=== PATIENT | male | born 1995 | race Caucasian/White ===

== ENCOUNTER → 2016-07-19 | Outpatient (REF) | payer SELFPAY ==
[2016-07-19 10:50] LABS: % NORMAL FORMS 8 % (>=4); IMMOTILITY 40 %; NON PROGRESSIVE MOTILITY (c) 20 %; SPERM# 27.2 M/Ejac (33-46); TOTAL FUNCTIONAL 2.1 M/Ejac.; TOTAL PROGRESSIVE SPERM 10.8 M/Ejac.
== END ==
LOC: M LAB REF 10:21
PROVIDERS: ATTEND Obstetrics & Gynecology
DX: Z31.41 Encounter for fertility testing (principal)